=== PATIENT | male | born 1955 | race American Indian/Alaskan Native ===

== ENCOUNTER 2019-04-14 09:53 | Outpatient (CLI) | payer MEDICAID ==
[2019-04-14 10:43] LABS: BUN/Creatinine Ratio 11; Blood Urea Nitrogen 15 mg/dL (9-20); Calcium 9.2 mg/dL (8.4-10.2); Hemolysis Index 4
--- NOTE | 2019-04-14 12:41 | Cat Scan Report ---
CT chest w con INDICATION: MAIN: R91.1 SOLITARY PULMONARY NODULE LEFT FOLLOW UP DIFFICULTY X 2YEARS HEADACHE. TECHNIQUE: All CT scans at this location are performed using CT dose reduction for ALARA by means of automated e xposure control. COMPARISON: None available. FINDINGS: No mediastinal, hilar or axillary adenopathy. Emphysema, with prominent bullae in the apices. No pleu ral fluid or acute pulmonary disease. There is a small subpleural lymph node, approximately 7 mm, geetha ng the left major fissure. I do not see a significant pulmonary nodule. Multiple healed rib fractures on the right. IMPRESSION: 1. 7 mm subpleural lymph node on the left. No significant pulmonary nodules. 2. Emphysema. Signer Name: Javi August MD Signed: 04/14/2019 12:37 PM Workstation Name: [id number]
== END 2019-04-14 09:54 | disposition home or self-care (01) ==
LOC: CT 09:53
PROVIDERS: ATTEND Internal Medicine
DX: J43.9 Emphysema, unspecified (principal); I10 Essential (primary) hypertension
CPT/HCPCS: 36415; 71260; 80048; Q9967

== ENCOUNTER 2019-07-13 13:59 | Inpatient (IN) | payer MEDICAID ==
--- NOTE | 2019-07-13 14:38 | Emergency Department Report ---
ED Shortness of Breath HPI - General Chief Complaint: Dyspnea/Respdistress Stated Complaint: MARCY Time Seen by Provider: 07/13/19 14:30 Source: EMS Mode of arrival: Ambulatory Limitations: No Limitations - History of Present Illness Initial Comments: Patient is 64 years old male with history of COPD and hypertension. Patient brought to the emergency room via EMS for evaluation of shortness of breath and cough for the last 2 days good force today. EMS is stating that patient initial oxygen saturation was 84% on room air improved to 96% on nasal cannula 2 L. Patient received albuterol and Solu-Medrol. Patient he stated that he quit smoking in the started smoking again yesterday. Patient denied any fever but he stated that he had chills. No nausea or vomiting. No chest pain. MD Complaint: shortness of breath, cough -: This morning Known History Of: COPD Context: recent URI - Related Data Home Medications Medication Instructions Recorded Confirmed Last Taken ALBUTEROL NEB's [Proventil] 2.5 mg IH DAILY 02/26/17 02/26/17 02/25/17 FLUoxetine HCL [FLUoxetine] 20 mg PO DAILY 02/26/17 02/26/17 02/25/17 Fluticasone Propionate [Flovent 250 mcg IH DAILY 02/26/17 02/26/17 02/25/17 Diskus] Folic Acid [Folvite] 1 mg PO QDAY 02/26/17 02/26/17 02/25/17 Losartan [Cozaar] 50 mg PO QDAY 02/26/17 02/26/17 02/25/17 Ranitidine HCl [Heartburn Relief] 150 mg PO BID 02/26/17 02/26/17 02/25/17 amLODIPine [Norvasc] 5 mg PO DAILY 02/26/17 02/26/17 02/25/17 risperiDONE [RisperiDONE] 1 mg PO QDAY 02/26/17 02/26/17 02/25/17 Previous Rx's Medication Instructions Recorded Last Taken Type Ibuprofen [Motrin 800 MG tab] 800 mg PO Q8H #30 tablet 01/19/14 02/25/17 Rx Cyclobenzaprine [Flexeril 10 MG 10 mg PO TID PRN #14 tablet 04/02/15 02/25/17 Rx TAB] HYDROcodone/APAP 5-325 [Reese 1 each PO Q6HR PRN #20 tablet 04/02/15 02/25/17 Rx 5-325 mg TAB] Allergies Allergy/AdvReac Type Severity Reaction Status Date / Time No Known Allergies Allergy Verified 01/19/14 21:16 ED Review of Systems ROS: Stated complaint: MARCY Other details as noted in HPI Comment: All other systems reviewed and negative Constitutional: chills. denies: fever Respiratory: cough, shortness of breath, SOB with exertion, SOB at rest, wheezing Cardiovascular: palpitations. denies: chest pain Gastrointestinal: denies: abdominal pain, nausea, vomiting Neurological: denies: headache, weakness ED Past Medical Hx - Past Medical History Previous Medical History?: Yes Hx Hypertension: Yes Hx CVA: No Hx Heart Attack/AMI: No Hx Congestive Heart Failure: No Hx Diabetes: No Hx Deep Vein Thrombosis: No Hx Pulmonary Embolism: No Hx GERD: No Hx Liver Disease: No Hx Renal Disease: No Hx of Cancer: No Hx Sickle Cell Disease: No Hx Arthritis: Yes (hands & legs) Hx Headaches / Migraines: No Hx Seizures: Yes Hx Kidney Stones: No Hx Psychiatric Treatment: No Hx Asthma: Yes Hx COPD: No Hx Tuberculosis: No Hx Dementia: No Hx HIV: No Additional medical history: meningitis when he was a baby - Surgical History Past Surgical History?: Yes Hx Coronary Stent: No Hx Open Heart Surgery: No Hx Pacemaker: No Hx Internal Defibrillator: No Hx Cholecystectomy: No Hx Appendectomy: No Hx Breast Surgery: No Additional Surgical History: surgery 1988 rt HIP - Social History Smoking Status: Current Every Day Smoker Substance Use Type: None - Medications Home Medications: Home Medications Medication Instructions Recorded Confirmed Last Taken Type Ibuprofen [Motrin 800 MG tab] 800 mg PO Q8H #30 tablet 01/19/14 02/26/17 02/25/17 Rx Cyclobenzaprine [Flexeril 10 MG 10 mg PO TID PRN #14 tablet 04/02/15 02/26/17 02/25/17 Rx TAB] HYDROcodone/APAP 5-325 [Reese 1 each PO Q6HR PRN #20 tablet 04/02/15 02/26/17 02/25/17 Rx 5-325 mg TAB] ALBUTEROL NEB's [Proventil] 2.5 mg IH DAILY 02/26/17 02/26/17 02/25/17 History FLUoxetine HCL [FLUoxetine] 20 mg PO DAILY 02/26/17 02/26/17 02/25/17 History Fluticasone Propionate [Flovent 250 mcg IH DAILY 02/26/17 02/26/17 02/25/17 History Diskus] Folic Acid [Folvite] 1 mg PO QDAY 02/26/17 02/26/17 02/25/17 History Losartan [Cozaar] 50 mg PO QDAY 02/26/17 02/26/17 02/25/17 History Ranitidine HCl [Heartburn Relief] 150 mg PO BID 02/26/17 02/26/17 02/25/17 History amLODIPine [Norvasc] 5 mg PO DAILY 02/26/17 02/26/17 02/25/17 History risperiDONE [RisperiDONE] 1 mg PO QDAY 02/26/17 02/26/17 02/25/17 History ED Physical Exam - General Limitations: No Limitations General appearance: alert, in no apparent distress - Head Head exam: Present: atraumatic, normocephalic, normal inspection - Eye Eye exam: Present: normal appearance - ENT ENT exam: Present: normal exam, normal orophraynx, mucous membranes moist - Neck Neck exam: Present: normal inspection - Respiratory Respiratory exam: Present: respiratory distress, wheezes, rales, rhonchi. Absent: stridor, accessory muscle use, decreased breath sounds, prolonged expiratory - Cardiovascular Cardiovascular Exam: Present: tachycardia - GI/Abdominal GI/Abdominal exam: Present: soft, normal bowel sounds. Absent: distended, tenderness, guarding, rebound, rigid, organomegaly, mass, bruit, pulsatile mass, hernia - Extremities Exam Extremities exam: Present: normal inspection, full ROM, normal capillary refill. Absent: pedal edema, calf tenderness - Back Exam Back exam: Present: normal inspection, full ROM. Absent: CVA tenderness (R), CVA tenderness (L), muscle spasm - Neurological Exam Neurological exam: Present: alert, oriented X3, CN II-XII intact, normal gait, reflexes normal - Skin Skin exam: Present: warm, intact, normal color ED Course Vital Signs 07/13/19 07/13/19 14:16 20:00 Temperature 98.2 F Pulse Rate 142 H Respiratory 18 18 Rate Blood Pressure 116/84 Blood Pressure 116/84 [Right] O2 Sat by Pulse 100 100 Oximetry ED Medical Decision Making - Lab Data Result diagrams: 07/13/19 15:52 07/13/19 15:52 - EKG Data -: EKG Interpreted by Me EKG shows normal: sinus rhythm Rate: tachycardia - EKG Data Interpretation: no acute changes - Radiology Data Radiology results: report reviewed - Medical Decision Making Patient is 64 years old male with history of COPD and hypertension. Patient brought to the emergency room via EMS for evaluation of shortness of breath and cough for the last 2 days good [place] today. EMS is stating that patient initial oxygen saturation was 84% on room air improved to 96% on nasal cannula 2 L. Patient received albuterol and Solu-Medrol. Patient he stated that he quit smoking in the started smoking again yesterday. Patient denied any fever but he stated that he had chills. No nausea or vomiting. No chest pain. Labs reviewed and is unremarkable except for elevated d-dimer. CTA is negative for pulmonary embolism. I discussed the patient with Dr. Whitman, he agreed to admit patient to medical service for further management. Critical Care Time: Yes Critical care time in (mins) excluding proc time.: 30 Critical care attestation.: If time is entered above; I have spent that time in minutes in the direct care of this critically ill patient, excluding procedure time. ED Disposition Clinical Impression: COPD exacerbation Disposition: OP ADMIT IP TO THIS HOSP Is pt being admited?: Yes Condition: Stable Instructions: Chronic Obstructive Pulmonary Disease (ED) Referrals: AMBER[facility] LALA [Other] - 3-5 Days
--- NOTE | 2019-07-13 15:14 | XRay Report ---
CHEST 1 VIEW INDICATION: Dyspnea. COMPARISON: No recent comparison. FINDINGS: Support devices: None. Heart: Within normal limits. Lungs/Pleura: The lungs are hyperinflated with chronic interstitial changes. No evidence for infiltra te, pleural effusion or pneumothorax. Additional findings: Multiple chronic right rib deformities are noted. IMPRESSION: No acute findings. Emphysematous changes. Signer Name: Tej Garcia Jr, MD Signed: 07/13/2019 3:10 PM Workstation Name: [id number]
[2019-07-13 16:07] LABS: Hematocrit 36.9 % (35.5-45.6); Hemoglobin 12.1 gm/dl (11.8-15.2); Mean Corpuscular HGB Conc 33 % (32-34); Mean Corpuscular Volume 86 fl (84-94); Platelet Count 144 K/mm3 (140-440); Red Blood Count 4.32 M/mm3 (3.65-5.03); Red Cell Distribution Width 16.1 % (13.2-15.2)
[2019-07-13 16:27] LABS: Calcium 8.5 mg/dL (8.4-10.2)
[2019-07-13 16:29] LABS: Alanine Aminotransferase 6 units/L (7-56); Albumin 3.3 g/dL (3.9-5)
[2019-07-13 16:31] LABS: INR 1.07 (0.87-1.13)
[2019-07-13 16:34] LABS: Bilirubin,Direct < 0.2 mg/dL (0-0.2); Partial Thromboplastin Time 33.8 Sec. (24.2-36.6)
[2019-07-13 16:47] LABS: Basophils % (Manual) 0 % (0.0-1.8); Eosinophils % (Manual) 0 % (0.0-4.3); Total Cells Counted 100
[2019-07-13 16:48] LABS: Anisocytosis 1+; Platelet Estimate Consistent w Auto
--- NOTE | 2019-07-13 18:38 | Cat Scan Report ---
CTA CHEST WITH IV CONTRAST INDICATION / CLINICAL INFORMATION: SOB, ELEVATED D-DIMER. TECHNIQUE: Axial CT images were obtained through the chest after injection of IV contrast. 3 plane MIP and/or 3D reconstructions were produced. All CT scans at this location are performed using CT dose reduction f or ALARA by means of automated exposure control. COMPARISON: None available. FINDINGS: PULMONARY ARTERIES: No pulmonary emboli. THORACIC AORTA: No significant abnormality. HEART: No significant abnormality. CORONARY ARTERIES: No significant calcification. PLEURA: No pleural effusion. No pneumothorax. LYMPH NODES: No significant adenopathy. LUNGS: Severe chronic lung disease with blebs and bullae especially in the upper lobes. Stable 7 mm n odule along the fissure on the left, most consistent with a chaparro fissural lymph node ADDITIONAL FINDINGS: None. UPPER ABDOMEN: No acute findings. SKELETAL STRUCTURES: No significant osseous abnormality. IMPRESSION: 1. No CT evidence for pulmonary embolism. 2. No acute findings. 3. Chronic lung disease as noted 4. Stable lymph node along the fissure on the left Signer Name: Antonio Mahoney MD Signed: 07/13/2019 6:33 PM Workstation Name: [id number]
[2019-07-13] MEDS ORDERED: ONDANSETRON 4 MG/2 ML INJ IV PRN (22:03)
[2019-07-13] MEDS ORDERED: ACETAMINOPHEN 325 MG TAB PO PRN (22:03)
[2019-07-13] MEDS: methylPREDNISolone Sod Succinate 40 MG/1 ML INJ IV SCH (23:53)
--- NOTE | 2019-07-14 01:24 | History and Physical Report ---
History of Present Illness Date of examination: 07/13/19 Date of admission: 07/13/19 22:05 Chief complaint: Shortness of breath History of present illness: Patient is a 64-year-old -[place] male with known history of COPD. Was brought into the emergency room with shortness of breath. Denies any chest pain, no fever or chills, no nausea vomiting. He had an oxygen saturation of about 84% en route to the hospital. He has had some nebulizer treatments and steroids with significant improvement upon arrival in the emergency room. Past History Past Medical History: COPD, hypertension Past Surgical History: Other (Right hip surgery, splenectomy,) Social history: smoking (Smokes 1 pack of cigarette daily.), other (Drinks alcohol occasionally,) Medications and Allergies Allergies Allergy/AdvReac Type Severity Reaction Status Date / Time No Known Allergies Allergy Verified 07/13/19 22:26 Home Medications Medication Instructions Recorded Confirmed Last Taken Type Ibuprofen [Motrin 800 MG tab] 800 mg PO Q8H #30 tablet 01/19/14 07/13/19 02/25/17 Rx Cyclobenzaprine [Flexeril 10 MG 10 mg PO TID PRN #14 tablet 04/02/15 07/13/19 02/25/17 Rx TAB] HYDROcodone/APAP 5-325 [[place] 1 each PO Q6HR PRN #20 tablet 04/02/15 07/13/19 02/25/17 Rx 5-325 mg TAB] ALBUTEROL NEB's [Proventil] 2.5 mg IH DAILY 02/26/17 07/13/19 07/13/19 History 5 FLUoxetine HCL [FLUoxetine] 20 mg PO DAILY 02/26/17 07/13/19 02/25/17 History Fluticasone Propionate [Flovent 250 mcg IH DAILY 02/26/17 07/13/19 07/13/19 History Diskus] 250 Folic Acid [Folvite] 1 mg PO QDAY 02/26/17 07/13/19 07/13/19 History 1 Losartan [Cozaar] 50 mg PO QDAY 02/26/17 07/13/19 07/13/19 History 50 Ranitidine HCl [Heartburn Relief] 150 mg PO BID 02/26/17 07/13/19 07/13/19 History 150 amLODIPine [Norvasc] 5 mg PO DAILY 02/26/17 07/13/19 07/13/19 History 5 risperiDONE [RisperiDONE] 1 mg PO QDAY 02/26/17 07/13/19 07/13/19 History 1 Active Meds: Active Medications Acetaminophen (Tylenol) 650 mg PO Q4H PRN PRN Reason: Pain MILD(1-3)/Fever >100.5/TERRELL Albuterol/Ipratropium (Duoneb *Not For Prn Use*) 1 ampul IH Q4HRT [facility] Magnesium Hydroxide (Milk Of Magnesia) 30 ml PO Q4H PRN PRN Reason: Constipation Methylprednisolone Sodium Succinate (Solu-Medrol) 40 mg IV Q6HR [facility] Last Admin: 07/13/19 23:53 Dose: 40 mg Documented by: Ondansetron HCl (Zofran) 4 mg IV Q8H PRN PRN Reason: Nausea And Vomiting Sodium Chloride (Sodium Chloride Flush Syringe 10 Ml) 10 ml IV BID [facility] Sodium Chloride (Sodium Chloride Flush Syringe 10 Ml) 10 ml IV PRN PRN PRN Reason: LINE FLUSH Review of Systems Respiratory: shortness of breath Exam - Constitutional Vitals: Temp Pulse Resp BP Pulse Ox 98.4 F 98 H 16 119/87 99 07/13/19 23:39 07/13/19 23:39 07/13/19 23:39 07/13/19 23:39 07/13/19 23:39 General appearance: Present: no acute distress - EENT Eyes: Present: PERRL, EOM intact ENT: hearing intact, clear oral mucosa, dentition normal - Neck Neck: Present: supple, normal ROM - Respiratory Respiratory: bilateral: diminished, wheezing - Cardiovascular Rhythm: regular Heart Sounds: Present: S1 & S2 - Extremities Extremities: no ischemia, pulses intact, No edema Peripheral Pulses: within normal limits - Abdominal General gastrointestinal: Present: soft, non-tender, non-distended - Integumentary Integumentary: Present: clear, warm, dry - Musculoskeletal Musculoskeletal: strength equal bilaterally - Psychiatric Psychiatric: appropriate mood/affect, intact judgment & insight - Neurologic Neurologic: CNII-XII intact, moves all extremities Results - Labs CBC & Chem 7: 07/13/19 15:52 07/13/19 15:52 Labs: Abnormal lab results 07/13/19 07/13/19 07/13/19 Range/Units 15:52 15:52 15:52 RDW 16.1 H (13.2-15.2) % Seg Neuts % (Manual) 96.0 H (40.0-70.0) % Lymphocytes % (Manual) 2.0 L (13.4-35.0) % Seg Neutrophils # Man 8.3 H (1.8-7.7) K/mm3 Lymphocytes # (Manual) 0.2 L (1.2-5.4) K/mm3 D-Dimer 616.91 H (0-234) ng/mlDDU Carbon Dioxide 20 L (22-30) mmol/L Creatinine 1.7 H (0.8-1.5) mg/dL ALT (7-56) units/L Alkaline Phosphatase (35-129) units/L Albumin (3.9-5) g/dL 07/13/19 Range/Units 15:52 RDW (13.2-15.2) % Seg Neuts % (Manual) (40.0-70.0) % Lymphocytes % (Manual) (13.4-35.0) % Seg Neutrophils # Man (1.8-7.7) K/mm3 Lymphocytes # (Manual) (1.2-5.4) K/mm3 D-Dimer (0-234) ng/mlDDU Carbon Dioxide (22-30) mmol/L Creatinine (0.8-1.5) mg/dL ALT 6 L (7-56) units/L Alkaline Phosphatase 138 H (35-129) units/L Albumin 3.3 L (3.9-5) g/dL Assessment and Plan - Patient Problems (1) COPD exacerbation Current Visit: Yes Status: Acute Plan to address problem: Patient has been admitted to the medical floor. He has been placed on nebulizing treatments. We also placed on IV steroid and keep O2 saturation greater or equal to 92%. (2) Hypoxia Current Visit: Yes Status: Acute Plan to address problem: He has been placed on oxygen by nasal cannula and will keep O2 saturation greater or equal to 92%. (3) Hypertension Current Visit: Yes Status: Acute Plan to address problem: Blood pressures controlled. Will resume her routine home medications once reconciled. (4) DVT prophylaxis Current Visit: Yes Status: Acute Plan to address problem: DVT prophylaxis patient placed on subcutaneous heparin. (5) Full code status Current Visit: Yes Status: Acute
[2019-07-14] MEDS: IPRATROPIUM/ALBUTEROL SULFATE 3 ML AMPUL.NEB IH SCH ×7 (01:44→19:37)
[2019-07-14] MEDS: methylPREDNISolone Sod Succinate 40 MG/1 ML INJ IV SCH ×3 (06:08→18:11)
[2019-07-14 07:33] LABS: Hematocrit 36.1 % (35.5-45.6); Hemoglobin 11.9 gm/dl (11.8-15.2); Mean Corpuscular HGB Conc 33 % (32-34); Mean Corpuscular Volume 85 fl (84-94); Platelet Count 149 K/mm3 (140-440); Red Blood Count 4.25 M/mm3 (3.65-5.03); Red Cell Distribution Width 16.2 % (13.2-15.2)
[2019-07-14 07:41] LABS: INR 1.03 (0.87-1.13)
[2019-07-14 07:45] LABS: Partial Thromboplastin Time 34.6 Sec. (24.2-36.6)
[2019-07-14 07:52] LABS: Calcium 8.6 mg/dL (8.4-10.2)
[2019-07-14 09:27] LABS: Band Neutrophils # (Manual) 0.6 K/mm3; Basophils % (Manual) 0 % (0.0-1.8); Eosinophils % (Manual) 0 % (0.0-4.3); Monocytes % (Manual) 0 % (0.0-7.3); Platelet Estimate Consistent w Auto; RBC Morphology Normal; Total Cells Counted 100
--- NOTE | 2019-07-14 12:21 | Progress Note ---
Assessment and Plan Assessment and plan: COPD exacerbation Continue nebulizer treatments and systemic steroids. Acute hypoxic respiratory failure Patient was noted have O2 saturation of 84% on admission. Continue oxygen by nasal cannula and will keep O2 saturation greater or equal to 92%. Hypertension Continue home blood pressure medications DVT prophylaxis DVT prophylaxis patient placed on subcutaneous heparin. History Interval history: No new issues overnight Hospitalist Physical - Constitutional Vitals: Temp Pulse Resp BP Pulse Ox 98.4 F 93 H 14 128/93 100 07/14/19 06:40 07/14/19 10:22 07/14/19 10:22 07/14/19 06:40 07/14/19 10:00 General appearance: Present: no acute distress - EENT Eyes: Present: PERRL, EOM intact ENT: hearing intact, clear oral mucosa, dentition normal - Neck Neck: Present: supple, normal ROM - Respiratory Respiratory effort: normal Respiratory: bilateral: CTA - Cardiovascular Rhythm: regular Heart Sounds: Present: S1 & S2. Absent: gallop, rub - Extremities Extremities: no ischemia, No edema, Full ROM - Abdominal General gastrointestinal: soft, non-tender, non-distended, normal bowel sounds - Integumentary Integumentary: Present: clear, warm, dry - Neurologic Neurologic: CNII-XII intact, moves all extremities Results - Labs CBC & Chem 7: 07/14/19 07:01 07/14/19 07:01 Labs: Laboratory Last Values WBC 14.9 K/mm3 (4.5-11.0) H 07/14/19 07:01 RBC 4.25 M/mm3 (3.65-5.03) 07/14/19 07:01 Hgb 11.9 gm/dl (11.8-15.2) 07/14/19 07:01 Hct 36.1 % (35.5-45.6) 07/14/19 07:01 MCV 85 fl (84-94) 07/14/19 07:01 MCH 28 pg (28-32) 07/14/19 07:01 MCHC 33 % (32-34) 07/14/19 07:01 RDW 16.2 % (13.2-15.2) H 07/14/19 07:01 Plt Count 149 K/mm3 (140-440) 07/14/19 07:01 Add Manual Diff Complete 07/14/19 07:01 Total Counted 100 07/14/19 07:01 Seg Neutrophils % Regulatory Affairs Spec 07/14/19 07:01 Seg Neuts % (Manual) 93.0 % (40.0-70.0) H 07/14/19 07:01 Band Neutrophils % 4.0 % 07/14/19 07:01 Lymphocytes % (Manual) 2.0 % (13.4-35.0) L 07/14/19 07:01 Reactive Lymphs % (Man) 0 % 07/14/19 07:01 Monocytes % (Manual) 0 % (0.0-7.3) 07/14/19 07:01 Eosinophils % (Manual) 0 % (0.0-4.3) 07/14/19 07:01 Basophils % (Manual) 0 % (0.0-1.8) 07/14/19 07:01 Metamyelocytes % 1.0 % 07/14/19 07:01 Myelocytes % 0 % 07/14/19 07:01 Promyelocytes % 0 % 07/14/19 07:01 Blast Cells % 0 % 07/14/19 07:01 Nucleated RBC % Not Reportable 07/14/19 07:01 Seg Neutrophils # Man 13.9 K/mm3 (1.8-7.7) H 07/14/19 07:01 Band Neutrophils # 0.6 K/mm3 07/14/19 07:01 Lymphocytes # (Manual) 0.3 K/mm3 (1.2-5.4) L 07/14/19 07:01 Abs React Lymphs (Man) 0.0 K/mm3 07/14/19 07:01 Monocytes # (Manual) 0.0 K/mm3 (0.0-0.8) 07/14/19 07:01 Eosinophils # (Manual) 0.0 K/mm3 (0.0-0.4) 07/14/19 07:01 Basophils # (Manual) 0.0 K/mm3 (0.0-0.1) 07/14/19 07:01 Metamyelocytes # 0.1 K/mm3 07/14/19 07:01 Myelocytes # 0.0 K/mm3 07/14/19 07:01 Promyelocytes # 0.0 K/mm3 07/14/19 07:01 Blast Cells # 0.0 K/mm3 07/14/19 07:01 WBC Morphology Not Reportable 07/14/19 07:01 Hypersegmented Neuts Not Reportable 07/14/19 07:01 Hyposegmented Neuts Not Reportable 07/14/19 07:01 Hypogranular Neuts Not Reportable 07/14/19 07:01 Smudge Cells Not Reportable 07/14/19 07:01 Toxic Granulation Not Reportable 07/14/19 07:01 Toxic Vacuolation Not Reportable 07/14/19 07:01 Dohle Bodies Not Reportable 07/14/19 07:01 Pelger-Huet Anomaly Not Reportable 07/14/19 07:01 Terrnece Rods Not Reportable 07/14/19 07:01 Platelet Estimate Consistent w auto 07/14/19 07:01 Clumped Platelets Not Reportable 07/14/19 07:01 Plt Clumps, EDTA Not Reportable 07/14/19 07:01 Large Platelets Not Reportable 07/14/19 07:01 Giant Platelets Not Reportable 07/14/19 07:01 Platelet Satelliting Not Reportable 07/14/19 07:01 Plt Morphology Comment Not Reportable 07/14/19 07:01 RBC Morphology Normal 07/14/19 07:01 Dimorphic RBCs Not Reportable 07/14/19 07:01 Polychromasia Not Reportable 07/14/19 07:01 Hypochromasia Not Reportable 07/14/19 07:01 Poikilocytosis Not Reportable 07/14/19 07:01 Anisocytosis Not Reportable 07/14/19 07:01 Microcytosis Not Reportable 07/14/19 07:01 Macrocytosis Not Reportable 07/14/19 07:01 Spherocytes Not Reportable 07/14/19 07:01 Pappenheimer Bodies Not Reportable 07/14/19 07:01 Sickle Cells Not Reportable 07/14/19 07:01 Target Cells Not Reportable 07/14/19 07:01 Tear Drop Cells Not Reportable 07/14/19 07:01 Ovalocytes Not Reportable 07/14/19 07:01 Helmet Cells Not Reportable 07/14/19 07:01 [place] Bodies Not Reportable 07/14/19 07:01 [place] Rings Not Reportable 07/14/19 07:01 [place] Cells Not Reportable 07/14/19 07:01 Bite Cells Not Reportable 07/14/19 07:01 Crenated Cell Not Reportable 07/14/19 07:01 Elliptocytes Not Reportable 07/14/19 07:01 Acanthocytes (Spur) Not Reportable 07/14/19 07:01 Rouleaux Not Reportable 07/14/19 07:01 Hemoglobin C Crystals Not Reportable 07/14/19 07:01 Schistocytes Not Reportable 07/14/19 07:01 Malaria parasites Not Reportable 07/14/19 07:01 Steve Bodies Not Reportable 07/14/19 07:01 Hem Pathologist Commnt No 07/14/19 07:01 PT 13.4 Sec. (12.2-14.9) 07/14/19 07:01 INR 1.03 (0.87-1.13) 07/14/19 07:01 APTT 34.6 Sec. (24.2-36.6) 07/14/19 07:01 D-Dimer 616.91 ng/mlDDU (0-234) H 07/13/19 15:52 POC ABG pH 7.398 (7.35-7.45) 07/13/19 14:52 POC ABG pCO2 38.0 (35-45) 07/13/19 14:52 POC ABG pO2 91 (80-105) 07/13/19 14:52 POC ABG HCO3 23.4 (22-26 mml/L) 07/13/19 14:52 POC ABG Total CO2 25 (23-27mmol/L) 07/13/19 14:52 POC ABG O2 Sat 97 07/13/19 14:52 POC ABG Base Excess -1 ((-2) - (+3)mmol/L) 07/13/19 14:52 FiO2 30 % 07/13/19 14:52 Sodium 139 mmol/L (137-145) 07/14/19 07:01 Potassium 5.0 mmol/L (3.6-5.0) D 07/14/19 07:01 Chloride 103.0 mmol/L (98-107) 07/14/19 07:01 Carbon Dioxide 23 mmol/L (22-30) 07/14/19 07:01 Anion Gap 18 mmol/L 07/14/19 07:01 BUN 27 mg/dL (9-20) H 07/14/19 07:01 Creatinine 1.8 mg/dL (0.8-1.5) H 07/14/19 07:01 Estimated GFR 46 ml/min 07/14/19 07:01 BUN/Creatinine Ratio 15 % 07/14/19 07:01 Glucose 153 mg/dL (75-100) H 07/14/19 07:01 Calcium 8.6 mg/dL (8.4-10.2) 07/14/19 07:01 Total Bilirubin 0.30 mg/dL (0.1-1.2) 07/13/19 15:52 Direct Bilirubin < 0.2 mg/dL (0-0.2) 07/13/19 15:52 Indirect Bilirubin 0.1 mg/dL 07/13/19 15:52 AST 13 units/L (5-40) 07/13/19 15:52 ALT 6 units/L (7-56) L 07/13/19 15:52 Alkaline Phosphatase 138 units/L (35-129) H 07/13/19 15:52 Troponin T 0.012 ng/mL (0.00-0.029) 07/13/19 18:36 NT-Pro-B Natriuret Pep 356.3 pg/mL (0-900) 07/13/19 15:52 Total Protein 6.4 g/dL (6.3-8.2) 07/13/19 15:52 Albumin 3.3 g/dL (3.9-5) L 07/13/19 15:52 Albumin/Globulin Ratio 1.1 % 07/13/19 15:52 Active Medications - Current Medications Current Medications: Generic Name Dose Route Start Last Admin Trade Name Freq PRN Reason Stop Dose Admin Acetaminophen 650 mg 07/13/19 22:03 Tylenol PO Q4H PRN Pain MILD(1-3)/Fever >100.5/TERRELL Albuterol/Ipratropium 1 ampul 07/14/19 00:00 07/14/19 10:21 Duoneb *Not For Prn Use* IH 1 ampul Q4HRT ONEL Administration Magnesium Hydroxide 30 ml 07/13/19 22:03 Milk Of Magnesia PO Q4H PRN Constipation Methylprednisolone Sodium Succinate 40 mg 07/14/19 00:00 07/14/19 12:15 Solu-Medrol IV 40 mg Q6HR ONEL Administration Ondansetron HCl 4 mg 07/13/19 22:03 Zofran IV Q8H PRN Nausea And Vomiting Sodium Chloride 10 ml 07/14/19 10:00 07/14/19 12:16 Sodium Chloride Flush Syringe 10 Ml IV 10 ml BID ONEL Administration Sodium Chloride 10 ml 07/13/19 22:03 Sodium Chloride Flush Syringe 10 Ml IV PRN PRN LINE FLUSH
[2019-07-15] MEDS: methylPREDNISolone Sod Succinate 40 MG/1 ML INJ IV SCH ×4 (06:27→17:50)
[2019-07-15] MEDS: IPRATROPIUM/ALBUTEROL SULFATE 3 ML AMPUL.NEB IH SCH ×4 (07:36→19:16)
[2019-07-15] MEDS: MAGNESIUM HYDROXIDE (MOM) ORAL LIQD UDC PO PRN (11:26)
--- NOTE | 2019-07-15 11:58 | Progress Note ---
Assessment and Plan Assessment and plan: COPD exacerbation Continue nebulizer treatments and systemic steroids. Acute hypoxic respiratory failure Patient was noted have O2 saturation of 84% on admission. Continue oxygen by nasal cannula and will keep O2 saturation greater or equal to 92%. Leukocytosis Etiology likely secondary to steroids. Patient with no evidence of sepsis or infection. CTA chest negative Acute on CKD. Patient with creatinine 1.05 April 2019. Etiology likely secondary to acute kidney injury from vasomotor nephropathy/dehydration. We will start IV fluid normal saline. ? Contrast nephropathy Hypertension Continue home blood pressure medications DVT prophylaxis DVT prophylaxis patient placed on subcutaneous heparin. History Interval history: No new issues overnight. Patient still complains of shortness of breath with minimal exertion. Hospitalist Physical - Constitutional Vitals: Temp Pulse Resp BP Pulse Ox 96.7 F L 85 20 130/88 100 07/14/19 21:58 07/15/19 08:00 07/15/19 08:00 07/14/19 21:58 07/15/19 07:36 General appearance: Present: no acute distress - EENT Eyes: Present: PERRL, EOM intact ENT: hearing intact, clear oral mucosa, dentition normal - Neck Neck: Present: supple, normal ROM - Respiratory Respiratory effort: normal Respiratory: bilateral: CTA - Cardiovascular Rhythm: regular Heart Sounds: Present: S1 & S2. Absent: gallop, rub - Extremities Extremities: no ischemia, No edema, Full ROM - Abdominal General gastrointestinal: soft, non-tender, non-distended, normal bowel sounds - Integumentary Integumentary: Present: clear, warm, dry - Neurologic Neurologic: CNII-XII intact, moves all extremities Results - Labs CBC & Chem 7: 07/14/19 07:01 07/14/19 07:01 Labs: Laboratory Last Values WBC 14.9 K/mm3 (4.5-11.0) H 07/14/19 07:01 RBC 4.25 M/mm3 (3.65-5.03) 07/14/19 07:01 Hgb 11.9 gm/dl (11.8-15.2) 07/14/19 07:01 Hct 36.1 % (35.5-45.6) 07/14/19 07:01 MCV 85 fl (84-94) 07/14/19 07:01 MCH 28 pg (28-32) 07/14/19 07:01 MCHC 33 % (32-34) 07/14/19 07:01 RDW 16.2 % (13.2-15.2) H 07/14/19 07:01 Plt Count 149 K/mm3 (140-440) 07/14/19 07:01 Add Manual Diff Complete 07/14/19 07:01 Total Counted 100 07/14/19 07:01 Seg Neutrophils % Senior Science Consultant 07/14/19 07:01 Seg Neuts % (Manual) 93.0 % (40.0-70.0) H 07/14/19 07:01 Band Neutrophils % 4.0 % 07/14/19 07:01 Lymphocytes % (Manual) 2.0 % (13.4-35.0) L 07/14/19 07:01 Reactive Lymphs % (Man) 0 % 07/14/19 07:01 Monocytes % (Manual) 0 % (0.0-7.3) 07/14/19 07:01 Eosinophils % (Manual) 0 % (0.0-4.3) 07/14/19 07:01 Basophils % (Manual) 0 % (0.0-1.8) 07/14/19 07:01 Metamyelocytes % 1.0 % 07/14/19 07:01 Myelocytes % 0 % 07/14/19 07:01 Promyelocytes % 0 % 07/14/19 07:01 Blast Cells % 0 % 07/14/19 07:01 Nucleated RBC % Not Reportable 07/14/19 07:01 Seg Neutrophils # Man 13.9 K/mm3 (1.8-7.7) H 07/14/19 07:01 Band Neutrophils # 0.6 K/mm3 07/14/19 07:01 Lymphocytes # (Manual) 0.3 K/mm3 (1.2-5.4) L 07/14/19 07:01 Abs React Lymphs (Man) 0.0 K/mm3 07/14/19 07:01 Monocytes # (Manual) 0.0 K/mm3 (0.0-0.8) 07/14/19 07:01 Eosinophils # (Manual) 0.0 K/mm3 (0.0-0.4) 07/14/19 07:01 Basophils # (Manual) 0.0 K/mm3 (0.0-0.1) 07/14/19 07:01 Metamyelocytes # 0.1 K/mm3 07/14/19 07:01 Myelocytes # 0.0 K/mm3 07/14/19 07:01 Promyelocytes # 0.0 K/mm3 07/14/19 07:01 Blast Cells # 0.0 K/mm3 07/14/19 07:01 WBC Morphology Not Reportable 07/14/19 07:01 Hypersegmented Neuts Not Reportable 07/14/19 07:01 Hyposegmented Neuts Not Reportable 07/14/19 07:01 Hypogranular Neuts Not Reportable 07/14/19 07:01 Smudge Cells Not Reportable 07/14/19 07:01 Toxic Granulation Not Reportable 07/14/19 07:01 Toxic Vacuolation Not Reportable 07/14/19 07:01 Dohle Bodies Not Reportable 07/14/19 07:01 Pelger-Huet Anomaly Not Reportable 07/14/19 07:01 Terrence Rods Not Reportable 07/14/19 07:01 Platelet Estimate Consistent w auto 07/14/19 07:01 Clumped Platelets Not Reportable 07/14/19 07:01 Plt Clumps, EDTA Not Reportable 07/14/19 07:01 Large Platelets Not Reportable 07/14/19 07:01 Giant Platelets Not Reportable 07/14/19 07:01 Platelet Satelliting Not Reportable 07/14/19 07:01 Plt Morphology Comment Not Reportable 07/14/19 07:01 RBC Morphology Normal 07/14/19 07:01 Dimorphic RBCs Not Reportable 07/14/19 07:01 Polychromasia Not Reportable 07/14/19 07:01 Hypochromasia Not Reportable 07/14/19 07:01 Poikilocytosis Not Reportable 07/14/19 07:01 Anisocytosis Not Reportable 07/14/19 07:01 Microcytosis Not Reportable 07/14/19 07:01 Macrocytosis Not Reportable 07/14/19 07:01 Spherocytes Not Reportable 07/14/19 07:01 Pappenheimer Bodies Not Reportable 07/14/19 07:01 Sickle Cells Not Reportable 07/14/19 07:01 Target Cells Not Reportable 07/14/19 07:01 Tear Drop Cells Not Reportable 07/14/19 07:01 Ovalocytes Not Reportable 07/14/19 07:01 Helmet Cells Not Reportable 07/14/19 07:01 [place] Bodies Not Reportable 07/14/19 07:01 [place] Rings Not Reportable 07/14/19 07:01 Brittany Cells Not Reportable 07/14/19 07:01 Bite Cells Not Reportable 07/14/19 07:01 Crenated Cell Not Reportable 07/14/19 07:01 Elliptocytes Not Reportable 07/14/19 07:01 Acanthocytes (Spur) Not Reportable 07/14/19 07:01 Rouleaux Not Reportable 07/14/19 07:01 Hemoglobin C Crystals Not Reportable 07/14/19 07:01 Schistocytes Not Reportable 07/14/19 07:01 Malaria parasites Not Reportable 07/14/19 07:01 Steve Bodies Not Reportable 07/14/19 07:01 Hem Pathologist Commnt No 07/14/19 07:01 PT 13.4 Sec. (12.2-14.9) 07/14/19 07:01 INR 1.03 (0.87-1.13) 07/14/19 07:01 APTT 34.6 Sec. (24.2-36.6) 07/14/19 07:01 D-Dimer 616.91 ng/mlDDU (0-234) H 07/13/19 15:52 POC ABG pH 7.398 (7.35-7.45) 07/13/19 14:52 POC ABG pCO2 38.0 (35-45) 07/13/19 14:52 POC ABG pO2 91 (80-105) 07/13/19 14:52 POC ABG HCO3 23.4 (22-26 mml/L) 07/13/19 14:52 POC ABG Total CO2 25 (23-27mmol/L) 07/13/19 14:52 POC ABG O2 Sat 97 07/13/19 14:52 POC ABG Base Excess -1 ((-2) - (+3)mmol/L) 07/13/19 14:52 FiO2 30 % 07/13/19 14:52 Sodium 139 mmol/L (137-145) 07/14/19 07:01 Potassium 5.0 mmol/L (3.6-5.0) D 07/14/19 07:01 Chloride 103.0 mmol/L (98-107) 07/14/19 07:01 Carbon Dioxide 23 mmol/L (22-30) 07/14/19 07:01 Anion Gap 18 mmol/L 07/14/19 07:01 BUN 27 mg/dL (9-20) H 07/14/19 07:01 Creatinine 1.8 mg/dL (0.8-1.5) H 07/14/19 07:01 Estimated GFR 46 ml/min 07/14/19 07:01 BUN/Creatinine Ratio 15 % 07/14/19 07:01 Glucose 153 mg/dL (75-100) H 07/14/19 07:01 Calcium 8.6 mg/dL (8.4-10.2) 07/14/19 07:01 Total Bilirubin 0.30 mg/dL (0.1-1.2) 07/13/19 15:52 Direct Bilirubin < 0.2 mg/dL (0-0.2) 07/13/19 15:52 Indirect Bilirubin 0.1 mg/dL 07/13/19 15:52 AST 13 units/L (5-40) 07/13/19 15:52 ALT 6 units/L (7-56) L 07/13/19 15:52 Alkaline Phosphatase 138 units/L (35-129) H 07/13/19 15:52 Troponin T 0.012 ng/mL (0.00-0.029) 07/13/19 18:36 NT-Pro-B Natriuret Pep 356.3 pg/mL (0-900) 07/13/19 15:52 Total Protein 6.4 g/dL (6.3-8.2) 07/13/19 15:52 Albumin 3.3 g/dL (3.9-5) L 07/13/19 15:52 Albumin/Globulin Ratio 1.1 % 07/13/19 15:52 Active Medications - Current Medications Current Medications: Generic Name Dose Route Start Last Admin Trade Name Freq PRN Reason Stop Dose Admin Acetaminophen 650 mg 07/13/19 22:03 Tylenol PO Q4H PRN Pain MILD(1-3)/Fever >100.5/TERRELL Albuterol/Ipratropium 1 ampul 07/15/19 08:00 07/15/19 07:36 Duoneb *Not For Prn Use* IH 1 ampul TIDRT ONEL Administration Magnesium Hydroxide 30 ml 07/13/19 22:03 07/15/19 11:26 Milk Of Magnesia PO 30 ml Q4H PRN Administration Constipation Methylprednisolone Sodium Succinate 40 mg 07/14/19 00:00 07/15/19 11:27 Solu-Medrol IV 40 mg Q6HR ONEL Administration Ondansetron HCl 4 mg 07/13/19 22:03 Zofran IV Q8H PRN Nausea And Vomiting Sodium Chloride 10 ml 07/14/19 10:00 07/15/19 11:26 Sodium Chloride Flush Syringe 10 Ml IV 10 ml BID ONEL Administration Sodium Chloride 10 ml 07/13/19 22:03 Sodium Chloride Flush Syringe 10 Ml IV PRN PRN LINE FLUSH
[2019-07-15] MEDS: SODIUM CHLORIDE 0.9% 1000 ML 1,000 ML IV SCH (12:33)
[2019-07-16] MEDS: MAGNESIUM HYDROXIDE (MOM) ORAL LIQD UDC PO PRN ×2 (00:26→09:55)
[2019-07-16] MEDS: methylPREDNISolone Sod Succinate 40 MG/1 ML INJ IV SCH ×4 (00:27→18:07)
[2019-07-16] MEDS: SODIUM CHLORIDE 0.9% 1000 ML 1,000 ML IV SCH ×2 (05:07→18:14)
[2019-07-16] MEDS: IPRATROPIUM/ALBUTEROL SULFATE 3 ML AMPUL.NEB IH SCH ×3 (07:24→21:02)
[2019-07-16 08:39] LABS: Hematocrit 35.4 % (35.5-45.6); Hemoglobin 11.7 gm/dl (11.8-15.2); Mean Corpuscular HGB Conc 33 % (32-34); Mean Corpuscular Volume 85 fl (84-94); Platelet Count 174 K/mm3 (140-440); Red Blood Count 4.17 M/mm3 (3.65-5.03); Red Cell Distribution Width 16.5 % (13.2-15.2)
[2019-07-16 08:55] LABS: BUN/Creatinine Ratio 19; Blood Urea Nitrogen 23 mg/dL (9-20); Calcium 8.4 mg/dL (8.4-10.2); Hemolysis Index 5
--- NOTE | 2019-07-16 10:54 | Progress Note ---
Assessment and Plan Assessment and plan: COPD exacerbation Continue nebulizer treatments and systemic steroids. Acute hypoxic respiratory failure Patient was noted have O2 saturation of 84% on admission. Continue oxygen by nasal cannula and will keep O2 saturation greater or equal to 92%. Leukocytosis Etiology likely secondary to steroids. Patient with no evidence of sepsis or infection. CTA chest negative Acute on CKD. Improved. Continue IV fluid hydration. Creatinine 1.2. Hyperkalemia. [place]ex[place] 1. Hypertension Continue home blood pressure medications DVT prophylaxis DVT prophylaxis patient placed on subcutaneous heparin. History Interval history: No new issues overnight. Patient still complains of shortness of breath with minimal exertion. Hospitalist Physical - Constitutional Vitals: Temp Pulse Resp BP Pulse Ox 97.9 F 74 20 167/109 96 07/16/19 05:47 07/16/19 05:47 07/16/19 05:47 07/16/19 05:47 07/16/19 07:32 General appearance: Present: no acute distress - EENT Eyes: Present: PERRL, EOM intact ENT: hearing intact, clear oral mucosa, dentition normal - Neck Neck: Present: supple, normal ROM - Respiratory Respiratory effort: normal Respiratory: bilateral: CTA - Cardiovascular Rhythm: regular Heart Sounds: Present: S1 & S2. Absent: gallop, rub - Extremities Extremities: no ischemia, No edema, Full ROM - Abdominal General gastrointestinal: soft, non-tender, non-distended, normal bowel sounds - Integumentary Integumentary: Present: clear, warm, dry - Neurologic Neurologic: CNII-XII intact, moves all extremities Results - Labs CBC & Chem 7: 07/16/19 07:58 07/16/19 07:58 Labs: Laboratory Last Values WBC 12.1 K/mm3 (4.5-11.0) H 07/16/19 07:58 RBC 4.17 M/mm3 (3.65-5.03) 07/16/19 07:58 Hgb 11.7 gm/dl (11.8-15.2) L 07/16/19 07:58 Hct 35.4 % (35.5-45.6) L 07/16/19 07:58 MCV 85 fl (84-94) 07/16/19 07:58 MCH 28 pg (28-32) 07/16/19 07:58 MCHC 33 % (32-34) 07/16/19 07:58 RDW 16.5 % (13.2-15.2) H 07/16/19 07:58 Plt Count 174 K/mm3 (140-440) 07/16/19 07:58 Add Manual Diff Complete 07/14/19 07:01 Total Counted 100 07/14/19 07:01 Seg Neutrophils % Business Executive 07/14/19 07:01 Seg Neuts % (Manual) 93.0 % (40.0-70.0) H 07/14/19 07:01 Band Neutrophils % 4.0 % 07/14/19 07:01 Lymphocytes % (Manual) 2.0 % (13.4-35.0) L 07/14/19 07:01 Reactive Lymphs % (Man) 0 % 07/14/19 07:01 Monocytes % (Manual) 0 % (0.0-7.3) 07/14/19 07:01 Eosinophils % (Manual) 0 % (0.0-4.3) 07/14/19 07:01 Basophils % (Manual) 0 % (0.0-1.8) 07/14/19 07:01 Metamyelocytes % 1.0 % 07/14/19 07:01 Myelocytes % 0 % 07/14/19 07:01 Promyelocytes % 0 % 07/14/19 07:01 Blast Cells % 0 % 07/14/19 07:01 Nucleated RBC % Not Reportable 07/14/19 07:01 Seg Neutrophils # Man 13.9 K/mm3 (1.8-7.7) H 07/14/19 07:01 Band Neutrophils # 0.6 K/mm3 07/14/19 07:01 Lymphocytes # (Manual) 0.3 K/mm3 (1.2-5.4) L 07/14/19 07:01 Abs React Lymphs (Man) 0.0 K/mm3 07/14/19 07:01 Monocytes # (Manual) 0.0 K/mm3 (0.0-0.8) 07/14/19 07:01 Eosinophils # (Manual) 0.0 K/mm3 (0.0-0.4) 07/14/19 07:01 Basophils # (Manual) 0.0 K/mm3 (0.0-0.1) 07/14/19 07:01 Metamyelocytes # 0.1 K/mm3 07/14/19 07:01 Myelocytes # 0.0 K/mm3 07/14/19 07:01 Promyelocytes # 0.0 K/mm3 07/14/19 07:01 Blast Cells # 0.0 K/mm3 07/14/19 07:01 WBC Morphology Not Reportable 07/14/19 07:01 Hypersegmented Neuts Not Reportable 07/14/19 07:01 Hyposegmented Neuts Not Reportable 07/14/19 07:01 Hypogranular Neuts Not Reportable 07/14/19 07:01 Smudge Cells Not Reportable 07/14/19 07:01 Toxic Granulation Not Reportable 07/14/19 07:01 Toxic Vacuolation Not Reportable 07/14/19 07:01 Dohle Bodies Not Reportable 07/14/19 07:01 Pelger-Huet Anomaly Not Reportable 07/14/19 07:01 Terrence Rods Not Reportable 07/14/19 07:01 Platelet Estimate Consistent w auto 07/14/19 07:01 Clumped Platelets Not Reportable 07/14/19 07:01 Plt Clumps, EDTA Not Reportable 07/14/19 07:01 Large Platelets Not Reportable 07/14/19 07:01 Giant Platelets Not Reportable 07/14/19 07:01 Platelet Satelliting Not Reportable 07/14/19 07:01 Plt Morphology Comment Not Reportable 07/14/19 07:01 RBC Morphology Normal 07/14/19 07:01 Dimorphic RBCs Not Reportable 07/14/19 07:01 Polychromasia Not Reportable 07/14/19 07:01 Hypochromasia Not Reportable 07/14/19 07:01 Poikilocytosis Not Reportable 07/14/19 07:01 Anisocytosis Not Reportable 07/14/19 07:01 Microcytosis Not Reportable 07/14/19 07:01 Macrocytosis Not Reportable 07/14/19 07:01 Spherocytes Not Reportable 07/14/19 07:01 Pappenheimer Bodies Not Reportable 07/14/19 07:01 Sickle Cells Not Reportable 07/14/19 07:01 Target Cells Not Reportable 07/14/19 07:01 Tear Drop Cells Not Reportable 07/14/19 07:01 Ovalocytes Not Reportable 07/14/19 07:01 Helmet Cells Not Reportable 07/14/19 07:01 [place] Bodies Not Reportable 07/14/19 07:01 [place] Rings Not Reportable 07/14/19 07:01 Brittany Cells Not Reportable 07/14/19 07:01 Bite Cells Not Reportable 07/14/19 07:01 Crenated Cell Not Reportable 07/14/19 07:01 Elliptocytes Not Reportable 07/14/19 07:01 Acanthocytes (Spur) Not Reportable 07/14/19 07:01 Rouleaux Not Reportable 07/14/19 07:01 Hemoglobin C Crystals Not Reportable 07/14/19 07:01 Schistocytes Not Reportable 07/14/19 07:01 Malaria parasites Not Reportable 07/14/19 07:01 Steve Bodies Not Reportable 07/14/19 07:01 Hem Pathologist Commnt No 07/14/19 07:01 PT 13.4 Sec. (12.2-14.9) 07/14/19 07:01 INR 1.03 (0.87-1.13) 07/14/19 07:01 APTT 34.6 Sec. (24.2-36.6) 07/14/19 07:01 D-Dimer 616.91 ng/mlDDU (0-234) H 07/13/19 15:52 POC ABG pH 7.398 (7.35-7.45) 07/13/19 14:52 POC ABG pCO2 38.0 (35-45) 07/13/19 14:52 POC ABG pO2 91 (80-105) 07/13/19 14:52 POC ABG HCO3 23.4 (22-26 mml/L) 07/13/19 14:52 POC ABG Total CO2 25 (23-27mmol/L) 07/13/19 14:52 POC ABG O2 Sat 97 07/13/19 14:52 POC ABG Base Excess -1 ((-2) - (+3)mmol/L) 07/13/19 14:52 FiO2 30 % 07/13/19 14:52 Sodium 143 mmol/L (137-145) 07/16/19 07:58 Potassium 5.5 mmol/L (3.6-5.0) H 07/16/19 07:58 Chloride 105.8 mmol/L (98-107) 07/16/19 07:58 Carbon Dioxide 24 mmol/L (22-30) 07/16/19 07:58 Anion Gap 19 mmol/L 07/16/19 07:58 BUN 23 mg/dL (9-20) H 07/16/19 07:58 Creatinine 1.2 mg/dL (0.8-1.5) 07/16/19 07:58 Estimated GFR > 60 ml/min 07/16/19 07:58 BUN/Creatinine Ratio 19 % 07/16/19 07:58 Glucose 153 mg/dL (75-100) H 07/16/19 07:58 Calcium 8.4 mg/dL (8.4-10.2) 07/16/19 07:58 Total Bilirubin 0.30 mg/dL (0.1-1.2) 07/13/19 15:52 Direct Bilirubin < 0.2 mg/dL (0-0.2) 07/13/19 15:52 Indirect Bilirubin 0.1 mg/dL 07/13/19 15:52 AST 13 units/L (5-40) 07/13/19 15:52 ALT 6 units/L (7-56) L 07/13/19 15:52 Alkaline Phosphatase 138 units/L (35-129) H 07/13/19 15:52 Troponin T 0.012 ng/mL (0.00-0.029) 07/13/19 18:36 NT-Pro-B Natriuret Pep 356.3 pg/mL (0-900) 07/13/19 15:52 Total Protein 6.4 g/dL (6.3-8.2) 07/13/19 15:52 Albumin 3.3 g/dL (3.9-5) L 07/13/19 15:52 Albumin/Globulin Ratio 1.1 % 07/13/19 15:52 Active Medications - Current Medications Current Medications: Generic Name Dose Route Start Last Admin Trade Name Freq PRN Reason Stop Dose Admin Acetaminophen 650 mg 07/13/19 22:03 Tylenol PO Q4H PRN Pain MILD(1-3)/Fever >100.5/TERRELL Albuterol/Ipratropium 1 ampul 07/15/19 08:00 07/16/19 07:24 Duoneb *Not For Prn Use* IH 1 ampul TIDRT ONEL Administration Sodium Chloride 1,000 mls @ 75 mls/hr 07/15/19 12:00 07/16/19 05:07 Nacl 0.9% 1000 Ml IV 75 mls/hr DIRECT ONEL Administration Magnesium Hydroxide 30 ml 07/13/19 22:03 07/16/19 00:26 Milk Of Magnesia PO 30 ml Q4H PRN Administration Constipation Methylprednisolone Sodium Succinate 40 mg 07/14/19 00:00 07/16/19 05:07 Solu-Medrol IV 40 mg Q6HR ONEL Administration Ondansetron HCl 4 mg 07/13/19 22:03 Zofran IV Q8H PRN Nausea And Vomiting Sodium Chloride 10 ml 07/14/19 10:00 07/16/19 09:31 Sodium Chloride Flush Syringe 10 Ml IV Not Given BID ONEL Sodium Chloride 10 ml 07/13/19 22:03 Sodium Chloride Flush Syringe 10 Ml IV PRN PRN LINE FLUSH
[2019-07-16 10:59] LABS: Basophils % (Manual) 0 % (0.0-1.8); Eosinophils % (Manual) 0 % (0.0-4.3); Total Cells Counted 100
[2019-07-16 11:00] LABS: Anisocytosis 1+; Platelet Estimate Consistent w Auto
[2019-07-16] MEDS ORDERED: SODIUM POLYSTYRENE 15 GM/60 ML ORAL LIQD PO ONE (11:54)
[2019-07-17] MEDS: methylPREDNISolone Sod Succinate 40 MG/1 ML INJ IV SCH ×3 (00:05→12:37)
[2019-07-17] MEDS: SODIUM CHLORIDE 0.9% 1000 ML 1,000 ML IV SCH (06:07)
[2019-07-17] MEDS: IPRATROPIUM/ALBUTEROL SULFATE 3 ML AMPUL.NEB IH SCH (09:39)
[2019-07-17 10:07] LABS: BUN/Creatinine Ratio 13; Blood Urea Nitrogen 16 mg/dL (9-20); Hemolysis Index 3
--- NOTE | 2019-07-17 10:36 | Discharge Summary ---
Providers - Providers Date of Admission: 07/13/19 22:05 Date of discharge: 07/17/19 Attending physician: MEGHAN HINOJOSA Hospitalization Reason for admission: sob Condition: Stable Hospital course: 64-year-old male with significant past medical history of COPD presented through the emergency room with complaints of dyspnea. Patient was noted on arrival to have oxygen saturation 84%. Patient was admitted with diagnosis of acute COPD exacerbation and acute hypoxic respiratory failure. Patient was treated with appropriate bronchodilators/nebulizer treatments and systemic steroids. Patient had a CTA of the chest that ruled out PE. Also, there was no evidence of infiltrate. Patient had minor complication during the hospital stay with acute on CKD that initially was thought to be secondary to potentially contrast nephropathy versus dehydration/vasomotor nephropathy. Patient received IV fluid hydration and creatinine returned to her normal baseline at 1.2 at the time of discharge. Patient is back to his baseline respiratory status and thus will be discharged home. Dedicated discharge time 32 minutes. Disposition: [id number]-01 TO HOME OR SELFCARE Time spent for discharge: 32 - Discharge Diagnoses (1) Acute respiratory failure with hypoxia Status: Acute (2) COPD exacerbation Status: Acute (3) Hypertension Status: Acute (4) Hypoxia Status: Acute (5) Vasomotor nephropathy Status: Acute Core Measure Documentation - Palliative Care Palliative Care/ Comfort Measures: Not Applicable - Core Measures Any of the following diagnoses?: none Exam - Constitutional Vitals: Temp Pulse Resp BP Pulse Ox 98.3 F 90 18 136/92 98 07/17/19 04:40 07/17/19 04:40 07/17/19 04:40 07/17/19 04:40 07/17/19 04:40 General appearance: Present: no acute distress, well-nourished - EENT Eyes: Present: PERRL ENT: hearing intact, clear oral mucosa - Neck Neck: Present: supple, normal ROM - Respiratory Respiratory effort: normal Respiratory: bilateral: CTA - Cardiovascular Heart Sounds: Present: S1 & S2. Absent: rub, click - Extremities Extremities: pulses symmetrical, No edema Peripheral Pulses: within normal limits - Abdominal General gastrointestinal: Present: soft, non-tender, non-distended, normal bowel sounds Male genitourinary: Present: normal - Integumentary Integumentary: Present: clear, warm, dry - Musculoskeletal Musculoskeletal: gait normal, strength equal bilaterally - Psychiatric Psychiatric: appropriate mood/affect, intact judgment & insight - Neurologic Neurologic: CNII-XII intact, moves all extremities Plan Activity: advance as tolerated Weight Bearing Status: Weight Bear as Tolerated Diet: regular Follow up with: AMBERLY LALA [Other] - 3-5 Days Prescriptions: amLODIPine 5 mg PO DAILY #30 tab Losartan [Cozaar] 50 mg PO QDAY #30 tab Fluticasone Propionate [Flovent Diskus] 250 mcg IH DAILY #1 applicator FLUoxetine HCL [FLUoxetine] 20 mg PO DAILY #30 tab Folic Acid [Folvite] 1 mg PO QDAY #30 tab methylPREDNISolone [Medrol 4MG DOSEPAK (21 tabs)] 4 mg PO DAILY #1 tab.ds.pk ALBUTEROL NEB's [Proventil 0.083% NEBS] 2.5 mg IH DAILY 30 Days
[2019-07-17 12:25] VITALS: BP 150/98
== END 2019-07-17 14:00 | disposition home or self-care (01) | DRG 189 ==
LOC: ED 13:59 → 3A 22:05
PROVIDERS: ADMIT Internal Medicine Geriatric Medicine; ATTEND Hospitalist
PROC: 4A033R1 Measurement of Arterial Saturation, Peripheral, Percutaneous Approach (ICD-10-PCS; principal; 2019-07-13)
DX: J96.01 Acute respiratory failure with hypoxia (principal); N17.0 Acute kidney failure with tubular necrosis; F17.210 Nicotine dependence, cigarettes, uncomplicated; I12.9 Hypertensive chronic kidney disease with stage 1 through stage 4 chronic kidney disease, or unspecified chronic kidney disease; N18.9 Chronic kidney disease, unspecified; E87.5 Hyperkalemia; J44.1 Chronic obstructive pulmonary disease with (acute) exacerbation; Z79.51 Long term (current) use of inhaled steroids; Z79.899 Other long term (current) drug therapy; Z90.81 Acquired absence of spleen
CPT/HCPCS: 36415; 71045; 71275; 80048; 80076; 82803; 83880; 84484; 85007; 85025; 85379; 85610; 85730; 93005; 93010; 94640; 94760; G0378; J2920; J7030; Q9967